=== PATIENT | female | born 1970 | race Caucasian/White ===

== ENCOUNTER 2019-07-08 23:14 | Emergency (ER) | payer MEDICAID, SELFPAY ==
[2019-07-08 23:30] VITALS: BP 121/81; PULSE 79; RESP 18; TEMP 36.5; O2SAT 99; BMI 43.7
--- NOTE | 2019-07-08 23:52 | W.ED.EXTPRO ---
HPI - Extremity Problem General: Chief complaint: Extremity Problem,Nontraumatic Stated complaint: swelling leg Time Seen by Provider: 07/08/19 23:46 History of Present Illness: HPI Narrative: Patient has an area in her left lower leg near the knee that is kind of hard a varicose vein and it is been tender and has some tenderness extending down across the tibia consistent with a superficial phlebitis type thing and she has had a history of that also on the other leg. MD Complaint: extremity pain Onset (ago): day(s) Pain Consistency: intermittent Location: left and lower extremity Quality: aching Exacerbating factors: range of motion and weight bearing Associated symptoms: Deny chest pain, fever(s) or rash Review of Systems Narrative: Tenderness to the left lower leg up near the knee and across the tibia Const: Denies: fever, chills or body aches Eyes: Denies: change in vision or blurry vision ENMT: Denies: throat pain or nasal congestion Card: Denies: chest pain or shortness of breath on exertion Resp: Denies: shortness of breath, productive cough or non-productive cough GI: Denies: abdominal pain, nausea or vomiting Musc: Denies: extremity pain Skin/Breast: Denies: rash Neuro: Denies: headache Psych: Denies: anxiety or depression Carlos/Lymph: Denies: easy bruising PFSH ED PFSH: Social History Smoking and tobacco status: never smoked Physical Exam Const: COMMON NORMALS: no apparent distress, average body habitus and oriented x3 HENMT: COMMON NORMALS: normocephalic HEAD & SCALP: normal to inspection and normocephalic FACE & SINUS: normal facial exam Eye: COMMON NORMALS: conjunctivae normal GENERAL EYE: normal appearance of both eyes CONJUNCTIVA: Yes conjunctivae normal Neck/C-Spine: COMMON NORMALS: no JVD Chest: COMMONS NORMALS: inspection of chest normal Resp: COMMON NORMALS: normal respiratory effort and clear to auscultation bilaterally AUSCULTATION: clear to auscultation bilaterally Cardio: COMMON NORMALS: no JVD, regular rate and regular rhythm RATE: regular rate RHYTHM: regular rhythm GI: COMMON NORMALS: normal to inspection, nondistended, normoactive bowel sounds Extremity: COMMON NORMALS: normal to inspection and full ROM Neuro: COMMON NORMALS: oriented x3 Skin: NARRATIVE SKIN EXAM: Patient has a varicose vein is hard up near her left lower leg up near the knee. Also has some redness extending across the tibia area up near the knee. There is all superficial there is no erythema that is significant noted. Course Vital Signs: Vital signs: Vital Signs Temperature 97.7 F 07/08/19 23:30 Pulse Rate 79 07/08/19 23:30 Respiratory Rate 18 07/08/19 23:30 Blood Pressure 121/81 07/08/19 23:30 Pulse Oximetry 99 07/08/19 23:30 Discharge Plan Discharge Condition: Stable Prescriptions: No Action verapamil 240 mg capsule,ext rel. pellets 24 hr 240 mg PO DAILY RF: 0 aspirin [Adult Aspirin Regimen] 81 mg tablet,delayed release (DR/EC) 81 mg PO DAILY RF: 0 Referrals: Qiana Canseco NP [Primary Care Provider] - Malathi Goldsmith DO [Family Provider] - Coding Level of Care Code ED [facility] Director for Carline Penaloza
[2019-07-09] VITALS (14 sets, daily range): BP systolic 97–138; BP diastolic 57–71; O2SAT 97–100
[2019-07-09] MEDS: cephALEXin 500 mg Capsule PO
--- NOTE | 2019-07-09 23:43 | USCV_ITS ---
Vita Reyes Age: 49 Gender: F : 1970 Exam Date: 07/09/2019 00:25 Ordering Phys: Juancarlos Hobson DO Technologist: Jadiel Duggan [place]am Location[place] [facility] [place] Indication: LT LEG PAIN AND SWELLING HISTORY: Lower extremity swelling. Lower extremity pain. PROCEDURES: Venous duplex imaging was performed in only the left lower extremity. The following venous structures were evaluated: common femoral vein, profunda vein, proximal portion of the greater saphenous vein, superficial femoral vein, and the popliteal vein. In addition, the posterior tibial and peroneal trunk were evaluated. On the left side, the common femoral, superficial femoral, profunda femoral, popliteal, posterior tibial, greater saphenous veins, and the peroneal trunk were identified and interrogated in the standard fashion. These veins were found to be easily compressible with spontaneous blood flow. No evidence of insufficiency or thrombus noted. FINDINGS: Normal 2-D Doppler and augmentation and compressibility throughout the lower extremity venous structures. Additional imaging through the proximal calf veins also reveals no thrombus. Limited evaluation of the greater saphenous vein is patent with no thrombus.. CONCLUSIONS No evidence of DVT in the above-mentioned identifiable veins on the left side. Dr Virgen Washington MD [facility] (Electronically Signed) Final Date: 09 July 2019 17:14 S
== END 2019-07-09 01:22 | disposition home or self-care (01) ==
PROVIDERS: Emergency Provider Nurse Practitioner Family; Family Provider Family Medicine; PCP Nurse Practitioner Family
DX: I83.892 Varicose veins of left lower extremity with other complications (principal); R22.42 Localized swelling, mass and lump, left lower limb
CPT/HCPCS: 93971; 96374; 99282; 99283; J2930

== ENCOUNTER 2019-07-21 07:24 | Day surgery (SDC) | payer MEDICAID, SELFPAY ==
[2019-07-20 16:34] VITALS: BMI 43.7
[2019-07-21 07:45] VITALS: BP 135/88; PULSE 73; RESP 18; TEMP 36.2; O2SAT 98
[2019-07-21 07:51] LABS: OR HCG Qualitative Urine Negative (Negative)
[2019-07-21] MEDS: sodium chloride 0.9% 1,000 ML 30 ML IV (08:40)
--- NOTE | 2019-07-21 09:18 | ANES.PREANE2 ---
Pre-Anesthetic Assessment Pre-Anesthetic Assessment: Height/Weight: Height 1.63 m Weight 115.666 kg Temp Pulse Resp BP Pulse Ox 97.1 F L 73 18 135/88 98 07/21/19 07:45 07/21/19 07:45 07/21/19 07:45 07/21/19 07:45 07/21/19 07:45 Preop Diagnosis: Right peroneal tendinopathy Proposed Procedure: Operation Date: 07/21/19 09:55 Proposed Procedures p Tendon Repair right [id number] M76.71(Right) - Sathya Lynn DPM Familial anesthetic complications: None Was Beta Enma taken within 24 hours: N/A Last intake: Intake Last Liquid Date 07/20/19 Last Liquid Time 23:00 Last Solid Date 07/20/19 Last Solid Time 20:00 Social: Social History: No alcohol and No tobacco Exam: Pre-Anes Outpt Exam: alert, oriented x 3, clear to auscultation bilaterally and regular rate & rhythm Airway: Cervical ROM: WNL MP: 2 Additional comments: missing Pulmonary: Pulmonary: None reported CV/HEM: CV/HEM: None reported : : None reported Hepatic: Hepatic: None reported GI: GI: None reported Metabolic: Metabolic: Morbid obesity and Thyroid Musc/skel: Comments: R foot with pain d/t tendon sprain, no apparent deformities, some swelling Neuropsych: Neuropsych: None reported Anesthetic Plan: ASA status: 2 Anesthesia: General Risk of > 500 ml blood loss (7ml/kg in children): No Meds/Allergies Current Medications: Current Medications Generic Name Dose Route Start Last Admin Trade Name Freq PRN Reason Stop Dose Admin Sodium Chloride 1,000 mls @ 30 ml s/hr 07/21/19 08:30 07/21/19 08:40 Sodium Chloride 0.9% IV 07/22/19 08:29 30 mls/hr .Q24H BARBIE Administration PFSH Anesthesia PFSH: Social History Smoking and tobacco status: never smoked Data Anesthesia Other Labs: Laboratory Results - last 48 hr 07/21/19 07:43 Urine HCG, Qual Negative Cardiac Studies: No Data to Display
--- NOTE | 2019-07-21 09:53 | W.PM.OPSUD ---
Surgery/Procedure H&P Update DATE OF PROCEDURE: July 21, 2019 DATE H&P PERFORMED: 07/20/19 H&P UPDATE INFORMATION: I have reviewed H&P completed within last 30 days, I have examined patient prior to procedure, No changes to prior documentation and H&P is in [facility] [place] EMR on date indicated PREOP DIAGNOSIS: Right peroneal tendinopathy PRIMARY INDICATION FOR PROCEDURE: Right peroneal tendinopathy with failure of conservative treatment PLANNED PROCEDURE: Operation Date: 07/21/19 09:55 Proposed Procedures p Tendon Repair right [id number] M76.71(Right) - Sathya Lynn DPM
[2019-07-21 11:20] VITALS: BP 137/99; PULSE 88; RESP 18; TEMP 36.7; O2SAT 95
[2019-07-21] MEDS: lidocaine 1% INJ 20 mL INTRADERMA (11:24)
[2019-07-21 11:25] VITALS: BP 141/93; PULSE 84; RESP 16; TEMP 36.7; O2SAT 100
[2019-07-21 11:33] VITALS: BP 126/74; PULSE 77; RESP 16; TEMP 36.7; O2SAT 97
[2019-07-21 12:07] VITALS: BP 138/77; PULSE 69; RESP 18; TEMP 36.7; O2SAT 98
--- NOTE | 2019-07-21 13:18 | P.OP_ITS ---
Operative Report Date of procedure: July 21, 2019 Pre-op Diagnosis: Right peroneal tendinopathy Post-op diagnosis: same Post-op Findings: Degenerative changes to peroneal longus right lower extremity involving greater than 50% of the tendon as well as low-lying muscle belly of the peroneal brevis. Procedure Done: Right peroneal tenodesis CPT code 53890 Specimens removed/disposition: None Pathology: none sent Surgeon: Sathya Lynn D.P.M. Anesthesia: General Estimated blood loss (mL): 5 IV fluids (mL): 0 Urine output (mL): 0 Complications: None Condition: stable Disposition: PACU Brief History: Ms. Reyes is a pleasant 49-year-old female with chronic right peroneal pain who failed conservative treatment consisting of offloading, ambulating with a cam boot, anti-inflammatories both oral and locally injected, range of motion exercises including eccentric loading, supportive shoes, orthotics and at home therapy. She is wishing to proceed with right peroneal tendon repair with risks including pain, bleeding, numbness, infection, failure to alleviate pain, transfer pressure, damage to adjacent soft tissue structures including nerve, tendon and vasculature, need for further surgical intervention. Patient wishes to proceed. Procedure: Under mild sedation the patient was brought to the operating room and placed on the operating table in supine position. A timeout was performed. Anesthesia was then administered by the anesthesia service. Well-padded pneumatic tourniquet was applied to the high calf of the right lower extremity. The right lower extremity was scrubbed, prepped and draped utilizing normal aseptic technique. Right foot and leg was then examined a weighted with a Esmarch bandage and the tourniquet was inflated to 250 mmHg. Attention was directed to the right lateral foot and ankle where a curvilinear incision was made posterior to the distal right fibula coursing in a curvilinear fashion distally and anteriorly over the course of the peroneal tendons near the base of the fifth metatarsal base. Incision was made with a #15 blade. Dissection was carried down through subcutaneous tissue utilizing a combination of blunt and sharp technique. All bleeders were ligated and cauterized as necessary. Care was taken to retract and preserve all neurovascular and tendinous structures. Tendon sheath was incised linearly revealing the peroneal brevis tendon which was directly visualized and inspected from its most proximal to distal course throughout the incision and noted to be intact without tear, there was mild hemorrhagic synovitis just distal to the lateral malleolus for a segment of approximately 4 cm. Utilizing a [place] wand micro-ablation set on setting for with saline drip a debridement was performed to this region. The proneness brevis was retracted inferiorly and the proneness longus was identified this had significant degeneration with longitudinal tearing, fibrosing and thickening and was significantly flattened and fibrosed including more than 50% of the tendon girth. At the most proximal portion of incision proximal to the lateral malleolus the peroneal longus tendon did appear to be healthy and was transected at this level and tenodesed to the peroneal brevis both proximally and then again distally distal to the lateral malleolus the degenerative segment was passed from the operative field. Tenodesis was carried out once the tendon was prepared utilizing 4-0 nylon. Of note there was a low-lying muscle belly of the peroneal brevis this was excised with electrocautery to reduce bleeding. Incision site was flushed with copious amounts of sterile saline solution. The peroneal retinaculum was reapproximated utilizing 2-0 Vicryl. Subcutaneous tissue reapproximated utilizing 4-0 Vicryl. 20 cc of Exparel was diffusely infiltrated throughout subcutaneous tissue on all margins of the incision. Skin was then closed utilizing jean carlos. Incision site was dressed with Adaptic, sterile 4 x 4's, Kerlix followed by application of multilayer well-padded posterior splint. Tourniquet was deflated and a prompt hyperemic response was noted to the distal digits of the right foot. The patient tolerated the procedure well and was transferred to the PACU with vital signs stable and vascular status intact. Following a period of postoperative monitoring she will be discharged home is to remain strict nonweightbearing to the right lower extremity is to elevate her right foot at all times while at rest. She is provided my cell phone number and is to contact me with any postoperative questions or concerns. Was also sent a prescription for Percocet 10/325 mg to be taken judiciously as prescribed.
--- NOTE | 2019-07-22 11:43 | PM.OP ---
Operative Report Date of procedure: July 21, 2019 Pre-op Diagnosis: Right peroneal tendinopathy
== END 2019-07-21 12:45 | disposition home or self-care (01) ==
PROVIDERS: Anesthesiology; Family Provider Family Medicine; PCP Nurse Practitioner Family; Visit Provider Podiatrist Foot & Ankle Surgery
PROC: (CPT 27691; principal; 2019-07-21 09:55)
DX: M76.71 Peroneal tendinitis, right leg (principal); E66.01 Morbid (severe) obesity due to excess calories; Z68.41 Body mass index [BMI] 40.0-44.9, adult; Z79.82 Long term (current) use of aspirin; Z82.49 Family history of ischemic heart disease and other diseases of the circulatory system; Z83.3 Family history of diabetes mellitus
CPT/HCPCS: 27691; 12345; 81025; 84703; C9290; J0690; J1100; J2001; J2250; J2405; J2704; J3010; J3490; J7030

== ENCOUNTER 2019-08-02 10:58 | Outpatient (CLI) | payer MEDICAID, SELFPAY | END 2019-08-02 10:59 | disposition home or self-care (01) | LOC: SPT 10:59 | PROVIDERS: Family Provider Family Medicine; PCP Nurse Practitioner Family; Visit Provider Podiatrist Foot & Ankle Surgery | DX: Z46.89 Encounter for fitting and adjustment of other specified devices (principal); M67.88 Other specified disorders of synovium and tendon, other site | CPT/HCPCS: L4361 ==

== ENCOUNTER 2020-03-25 09:16 | Outpatient (CLI) | payer MEDICAID, SELFPAY ==
--- NOTE | 2020-03-25 09:30 | USCV_ITS ---
Vita Reyes Age: 49 Gender: F : 1970 Exam Date: 03/25/2020 09:42 Ordering Phys: Sathya Lynn DPM Technologist: Nina Montoya Exam Location: [facility] – [place] Indication: Right ankle swelling HISTORY: Lower extremity swelling. PROCEDURES: Venous duplex imaging was performed in bilateral lower extremities. The following venous structures were evaluated: common femoral vein, profunda vein, proximal portion of the greater saphenous vein, superficial femoral vein, and the popliteal vein. In addition, the posterior tibial and peroneal trunk were evaluated. FINDINGS: Partial short segment thrombus noted in a superficial accessory vein noted adjacent to the right GSV below knee. All other veins imaged appear compressible and free of thrombus at this time. CONCLUSIONS No DVT bilateral lower extremities. Short segment right lower extremity superficial vein thrombosis below the knee. Dr. Ceci Reyes DO (Electronically Signed) Final Date: 25 March 2020 14:35 S
== END 2020-03-25 09:17 | disposition home or self-care (01) ==
LOC: RAD 09:19
PROVIDERS: PCP Nurse Practitioner Family; Visit Provider Podiatrist Foot & Ankle Surgery
DX: M79.89 Other specified soft tissue disorders (principal); I82.811 Embolism and thrombosis of superficial veins of right lower extremity
CPT/HCPCS: 93970

== ENCOUNTER → 2020-08-04 12:46 | Outpatient (BNVA) | payer BC, MEDICAID, SELFPAY | PROVIDERS: PCP Nurse Practitioner Family; Visit Provider Emergency Medicine | DX: N39.0 Urinary tract infection, site not specified (principal); R30.0 Dysuria | CPT/HCPCS: 81000; 87086 ==

== ENCOUNTER → 2020-10-05 15:07 | Outpatient (BNVA) | payer BC, MEDICAID, SELFPAY | PROVIDERS: PCP Nurse Practitioner Family; Visit Provider Nurse Practitioner Family | DX: Z20.822 Contact with and (suspected) exposure to COVID-19 (principal) | CPT/HCPCS: 87635 ==

== ENCOUNTER → 2023-02-25 09:40 | Outpatient (BNVA) | payer OTHER, SELFPAY | PROVIDERS: PCP Nurse Practitioner Family; Visit Provider Nurse Practitioner | DX: M25.371 Other instability, right ankle (principal); M67.88 Other specified disorders of synovium and tendon, other site; M72.2 Plantar fascial fibromatosis; E03.9 Hypothyroidism, unspecified; Z12.39 Encounter for other screening for malignant neoplasm of breast | CPT/HCPCS: 84443 ==

== ENCOUNTER → 2024-02-14 16:00 | Outpatient (BNVA) | payer OTHER, SELFPAY | PROVIDERS: PCP Nurse Practitioner; Visit Provider Nurse Practitioner | DX: E03.9 Hypothyroidism, unspecified (principal) | CPT/HCPCS: 80053; 83036; 84443 ==

== ENCOUNTER → 2024-03-29 16:07 | Outpatient (BNVA) | payer OTHER, SELFPAY | PROVIDERS: PCP Nurse Practitioner; Visit Provider Nurse Practitioner | DX: M54.42 Lumbago with sciatica, left side (principal); M54.41 Lumbago with sciatica, right side | CPT/HCPCS: 72100; 72202 ==

== ENCOUNTER → 2024-04-19 13:55 | Outpatient (BNVA) | payer SELFPAY | PROVIDERS: PCP Nurse Practitioner; Visit Provider Nurse Practitioner | DX: S86.911A Strain of unspecified muscle(s) and tendon(s) at lower leg level, right leg, initial encounter (principal); X58.XXXA Exposure to other specified factors, initial encounter | CPT/HCPCS: 73562 ==

== ENCOUNTER 2024-05-29 10:18 | Outpatient (CLI) | payer OTHER, SELFPAY ==
--- NOTE | 2024-05-29 10:22 | MR_ITS ---
WS: [id number] MRI RIGHT KNEE NONCONTRAST TECHNIQUE: Axial PD, coronal PD fat sat, coronal PD, sagittal PD, and sagittal PD fat-sat images obta ined. CLINICAL INFORMATION: RIGHT KNEE PAIN COMPARISON: None. FINDINGS: Moderate to severe tricompartment arthritis advanced for patient this age. Distal quadriceps and coles lla tendons appear intact. Moderate suprapatellar effusion. Moderate chondromalacia patella. Joint sp shakila narrowing worse in the medial joint compartment. Peripheral extrusion of the medial meniscus. Chr onic thinning of the medial and lateral meniscus worse involving the medial meniscus. Chronic degener ation of the medial meniscus. Chronic appearing blunting along the medial meniscal root with peripher al extrusion. Normal medial and lateral collateral ligaments. Diffuse soft tissue edema about the knee. Medial and lateral patellar retinaculum appear intact. MR/MR knee RT wo con* [id number] IMPRESSION: 1. Moderate to advanced tricompartment arthritis. 2. Grade III chondromalacia patella. Moderate suprapatellar effusion. 3. Severe joint space narrowing medial joint compartment with peripheral extru kwame of the medial meniscus. Chronic blunting of the medial meniscal root. 4. Grade 3-4 chondromalacia medial joint compartment. Small amount of edema in the tibial plateau. 5. ACL and PCL appear intact. 6. Diffuse soft tissue edema about the knee. Outbridge grading: grade IV: full-thickness cartilage loss with underlying bone reactive changes
== END 2024-05-29 10:19 | disposition home or self-care (01) ==
LOC: RAD 10:19
PROVIDERS: PCP Nurse Practitioner; Visit Provider Nurse Practitioner
DX: M76.51 Patellar tendinitis, right knee (principal); M13.861 Other specified arthritis, right knee; M22.41 Chondromalacia patellae, right knee; R93.6 Abnormal findings on diagnostic imaging of limbs
CPT/HCPCS: 73721

== ENCOUNTER → 2024-06-09 10:01 | Outpatient (BNVA) | payer OTHER, SELFPAY | PROVIDERS: PCP Nurse Practitioner; Referring Provider Nurse Practitioner; Visit Provider Orthopaedic Surgery | DX: G89.29 Other chronic pain (principal); M25.561 Pain in right knee; S86.911A Strain of unspecified muscle(s) and tendon(s) at lower leg level, right leg, initial encounter; X50.9XXA Other and unspecified overexertion or strenuous movements or postures, initial encounter | CPT/HCPCS: 73560; 73565 ==

== ENCOUNTER 2024-06-10 06:30 | Outpatient (RCR) | payer OTHER, SELFPAY | END 2024-07-07 23:59 | disposition home or self-care (01) | LOC: MPT 06:30 | PROVIDERS: Visit Provider Orthopaedic Surgery | DX: M25.561 Pain in right knee (principal) | CPT/HCPCS: 97110; 97162 ==

== ENCOUNTER 2024-07-08 06:00 | Outpatient (RCR) | payer OTHER, SELFPAY | END 2024-08-07 23:59 | disposition home or self-care (01) | LOC: MPT 06:00 | PROVIDERS: PCP Nurse Practitioner; Visit Provider Orthopaedic Surgery | DX: M25.561 Pain in right knee (principal) | CPT/HCPCS: 97110; G0283 ==

== ENCOUNTER → 2024-10-17 14:35 | Outpatient (BNVA) | payer OTHER, SELFPAY | PROVIDERS: PCP Nurse Practitioner; Visit Provider Nurse Practitioner | DX: Z01.818 Encounter for other preprocedural examination (principal) | CPT/HCPCS: 80053; 84443; 85025 ==

== ENCOUNTER 2024-11-22 05:38 | Day surgery (SDC) | payer OTHER, SELFPAY ==
[2024-11-22] VITALS (11 sets, daily range): BP systolic 110–136; BP diastolic 75–99; PULSE 52–78; RESP 11–18; TEMP 36.2–36.3; O2SAT 91–100; BMI 41.5
--- NOTE | 2024-11-22 05:55 | ANES.PREANE2 ---
Pre-Anesthetic Assessment Height/Weight: Height 5 ft 5 in Preop Diagnosis: Knee pain Operation Date: 11/22/24 07:00 Proposed Procedures p RIGHT Knee Arthroscopy(Right) - Darin Witt MD s Repair Arthroscopy Knee Meniscus Arthroscopic Medial Meniscal Repair(Right) - Darin Witt MD Was Beta Enma taken within 24 hours: N/A Was Clonidine taken within 24 hours: N/A Social No alcohol and No tobacco Exam alert, oriented x 3, clear to auscultation bilaterally and regular rate & rhythm Airway Submandibular: within normal limits Cervical ROM: within normal limits Mallampati: Class III Dentition: full Comments: Comments: Smaller mouth opening, good neck extension Anesthetic Plan ASA status: 3 Anesthesia: General Other: No prior issues with anesthesia NPO since yesterday evening History of hypertension on verapamil Hypothyroidism on Synthroid Labs reviewed 10/17/2024 and acceptable for procedure today Plan for general anesthesia Medications/Allergies Home Medications ?Medication ?Instructions ?Recorded ?Confirmed ?Last Taken ?Type aspirin 81 mg tablet,delayed 81 mg PO DAILY 07/08/19 11/21/24 11/12/24 History release (Adult Aspirin Regimen) verapamil 240 mg 24 hr 240 mg PO DAILY 07/08/19 11/21/24 11/21/24 History capsule,extended release cyproheptadine 4 mg tablet 4 mg PO Q6H PRN headaches 10/25/21 11/22/24 Unknown History albuterol sulfate 90 mcg/actuation 2 puff inhalation Q6H PRN 03/21/22 11/22/24 Unknown Rx aerosol inhaler shortness of breath or wheezing #8.5 grams magnesium 200 mg tablet 200 mg PO DAILY 02/25/23 11/21/24 11/21/24 History baclofen 10 mg tablet 5 mg PO TID 03/27/24 11/21/24 11/21/24 History celecoxib 200 mg capsule 200 mg PO BID 10/24/24 11/21/24 11/12/24 History phentermine 37.5 mg capsule 37.5 mg PO DAILY #30 caps 10/27/24 11/21/24 11/12/24 Rx promethazine 25 mg tablet 25 mg PO TID PRN nausea and 10/31/24 11/21/24 11/07/24 Rx vomiting #10 tabs gabapentin 300 mg capsule 300 mg PO DAILY 11/21/24 11/21/2411/21/25 History levothyroxine 88 mcg tablet 88 mcg PO DAILY 11/21/24 11/21/24 11/22/24 History Allergies Allergy/AdvReac Type Severity Reaction Status Date / Time cefdinir Allergy Intermediate rash Verified 11/22/24 05:56 acetaminophen (From Lorcet Allergy unknown Verified 11/22/24 05:56 (hydrocodone)) Sulfa (Sulfonamide Allergy unknown Verified 11/22/24 05:56 Antibiotics) [facility] Anesthesia Medical History No pertinent past medical history Family History Grandmother Arrhythmia maternal Thyroid disease maternal Father Colon cancer Grandfather Alzheimer's dementia maternal Thyroid disease maternal Mother Thyroid disease Sister Thyroid disease Family/Other Thyroid disease several aunts and uncles Other Diabetes Hypertension Denies family history of CAD (coronary artery disease) Clotting disorder Dementia Hyperlipidemia Psychiatric illness Chronic kidney disease (CKD) Suicide Anesthesia complication Bleeding disorder Family history of premature coronary artery disease Lung disease Cancer Stroke Social History Smoking and tobacco/nicotine status: never used tobacco/nicotine Female Reproductive History Para: 2 Spontaneous abortions: Yes (1)
--- NOTE | 2024-11-22 06:53 | W.PM.OPSUD ---
Surgery/Procedure H&P Update DATE OF PROCEDURE: November 22, 2024 DATE H&P PERFORMED: 10/03/24 H&P UPDATE INFORMATION: I have reviewed H&P completed within last 30 days, I have examined patient prior to procedure and No changes to prior documentation PREOP DIAGNOSIS: Knee pain PLANNED PROCEDURE: Operation Date: 11/22/24 07:00 Proposed Procedures p RIGHT Knee Arthroscopy(Right) - Darin Witt MD s Repair Arthroscopy Knee Meniscus Arthroscopic Medial Meniscal Repair(Right) - Darin Witt MD
[2024-11-22] MEDS: BUPivacaine 0.5% INJ 30 mL INJECTION (07:25)
--- NOTE | 2024-11-22 07:53 | PM.OP ---
Operative Report Date of procedure: November 22, 2024 Surgeon: Darin Witt MD Procedure: Preoperative diagnosis: Internal derangement of the right knee, posterior horn medial meniscal tear Postoperative diagnosis: Grade II/III chondromalacia of the posterior patella, medial femoral condyle, lateral femoral condyle, chondromalacia grade 1/2 of the tibial plateau both medial lateral. Hypertrophic synovium. Complex tear posterior horn medial meniscus, degenerative tearing inner edge central portion of the lateral meniscus Procedure: Diagnostic right knee arthroscopy with partial medial meniscectomy and lateral meniscectomy. Chondroplasty of the posterior patella medial femoral condyle lateral femoral condyle as well as medial tibial plateau and lateral tibial plateau. Debridement of synovium. Surgeon: Darin Witt MD Fabric Worker Supervisor: DICK Bee's assistance was necessary for positioning the patient, assistance during the procedure, wound closure and dressing placement. Transfer the patient to the PACU Anesthesia: General EBL: 5 cc Indications: Vita is a 54-year-old white female was referred in by her primary care provider for debilitating right knee pain. Patient already had x-rays and an MRI of her knee. MRI demonstrated a complex tear of the posterior horn medial meniscus as well as chondromalacia throughout the knee. Clinical exam was consistent with this. Therefore at that time she was offered a diagnostic knee arthroscopy with all indicated procedures. Also a brief discussion about the fact that more likely she will lead up to needing a total knee arthroplasty and later in her life. Patient had all risks benefits and treatment alternatives discussed with her and she is agreeable to proceed with surgical intervention. Procedure: After obtaining her consent patient was taken to the operating room placed on the operative table supine position general anesthetic administered. Once good anesthesia achieved right leg was placed in a leg weiss and the foot the bed was dropped out. Left leg was padded appropriately. Right leg was then prepped and draped usual fashion. After surgical timeout standard anterior medial and lateral portals were made with #11 blade. Camera cannula was placed through the lateral portal into her the knee was undertaken. Suprapatellar pouch had hypertrophic synovium. Grade II/III chondromalacia was identified the posterior patella. This was debrided down to stable cartilaginous base with a mechanical shaver. IT groove is clear. Medial gutter was clear. Medial compartment demonstrated grade II/III chondromalacia of the main weightbearing surface the medial femoral condyle. Grade I/II chondromalacia of the medial tibial plateau. There is a complex tear of the posterior horn medial meniscus. Medial meniscus was debrided with small hand instruments and mechanical shaver. Chondroplasty was done to the medial femoral condyle medial tibial plateau with a mechanical shaver down to stable cartilaginous space. Intercondylar notch had hypertrophic synovium was slightly debrided with a mechanical shaver. ACL was found to be intact and functioning. Lateral compartment demonstrated mild degenerative tearing of the inner edge of the lateral meniscus was debrided with mechanical shaver down to stable cartilage space. Grade II/III chondromalacia was found to the small portion of the lateral femoral condyle this too was debrided down with a mechanical shaver. Small amount of chondromalacia grade 1/2 was found on the lateral tibial plateau that was also debrided. Knee was then washed with copious amounts of sterile irrigation. Cannulas removed. Wounds are closed with 3-0 Prolene interrupted sutures. They were injected core percent Marcaine plain with remainder 3 cc injected intra-articularly for postop pain management. Wounds are cleaned and dried with this Xeroform gauze, sterile gauze dressing, Webril and Remi wrap for compression. Patient awakened transferred recovery in stable condition
[2024-11-22] MEDS: fentaNYL 50 mcg/mL INJ 2mL IVP (08:07)
--- NOTE | 2024-11-22 09:24 | ANE.PACU2 ---
Inpatient post-anesthesia follow up: Airway intact: Yes Vital signs: Temperature 97.4 F Pulse Rate 70 Respiratory Rate 18 Blood Pressure 110/91 Pulse Oximetry 99 Oxygen Delivery Me thod Room Air Oxygen Flow Rate 2 Fraction of Inspir ed Oxygen
== END 2024-11-22 09:24 | disposition home or self-care (01) ==
PROVIDERS: PCP Nurse Practitioner; Visit Provider Orthopaedic Surgery
PROC: (CPT 29870; principal; 2024-11-22 07:00)
PROC: (CPT 29880; 2024-11-22 07:00)
DX: M23.322 Other meniscus derangements, posterior horn of medial meniscus, left knee (principal); M94.261 Chondromalacia, right knee; S72.431A Displaced fracture of medial condyle of right femur, initial encounter for closed fracture; S72.421A Displaced fracture of lateral condyle of right femur, initial encounter for closed fracture; S83.231A Complex tear of medial meniscus, current injury, right knee, initial encounter; X58.XXXA Exposure to other specified factors, initial encounter; Z79.82 Long term (current) use of aspirin; I10 Essential (primary) hypertension; E03.9 Hypothyroidism, unspecified
CPT/HCPCS: 29880; J1100; J2250; J2405; J2704; J3010; J3490; J7030

== ENCOUNTER 2024-12-08 05:00 | Outpatient (RCR) | payer OTHER, SELFPAY | END 2025-01-07 23:59 | disposition home or self-care (01) | LOC: MPT 05:00 | PROVIDERS: Visit Provider Orthopaedic Surgery | DX: Z47.89 Encounter for other orthopedic aftercare (principal) | CPT/HCPCS: 97110; 97161; G0283 ==

== ENCOUNTER 2025-01-08 05:00 | Outpatient (RCR) | payer OTHER, SELFPAY | END 2025-02-06 23:59 | disposition home or self-care (01) | LOC: MPT 05:00 | PROVIDERS: PCP Nurse Practitioner; Visit Provider Orthopaedic Surgery | DX: Z47.89 Encounter for other orthopedic aftercare (principal) | CPT/HCPCS: 97110; G0283 ==

== ENCOUNTER 2025-02-21 08:32 | Outpatient (RCR) | payer OTHER, SELFPAY | END 2025-03-09 23:59 | disposition home or self-care (01) | LOC: MPT 08:32 | PROVIDERS: PCP Nurse Practitioner; Visit Provider Orthopaedic Surgery | DX: Z47.89 Encounter for other orthopedic aftercare (principal) | CPT/HCPCS: 97110; G0283 ==

== ENCOUNTER → 2025-03-13 10:36 | Outpatient (BNVA) | payer OTHER, SELFPAY | PROVIDERS: PCP Nurse Practitioner; Visit Provider Nurse Practitioner | DX: R68.89 Other general symptoms and signs (principal) | CPT/HCPCS: 87400; 87426 ==